=== PATIENT | female | born 2000 | race American Indian/Alaskan Native ===

== ENCOUNTER 2018-05-01 08:24 | Emergency (ER) | payer SELFPAY ==
[2018-05-01 08:29] VITALS: BP 112/74
[2018-05-01 09:04] LABS: Bilirubin,Urine NEG (Negative); Blood,Urine SM (Negative); Color,Urine Yellow (Yellow); HCG Qualitative,Urine Negative (Negative); Mucus,Urine 2+ /HPF; Protein,Urine <15 mg/dL mg/dL (Negative); Urobilinogen,Urine < 2.0 mg/dL (<2.0)
--- NOTE | 2018-05-01 09:27 | Emergency Department Report ---
ED Female HPI - General Chief complaint: Urogenital-Female Stated complaint: VAGINAL DISCOMFORT Time Seen by Provider: 05/01/18 09:00 Source: patient Mode of arrival: Ambulatory Limitations: No Limitations - History of Present Illness Initial comments: History of edema presents to ED with report of yellow and greenish vaginal discharge for 3 months. Reports dysuria, lower abdominal pain, vaginal itching. Denies fever MD Complaint: vaginal discharge -: month(s) (3) Location: suprapubic Radiation: non-radiating Severity: mild Quality: burning Consistency: intermittent Improves with: none Worsens with: none Are you Now?: No Associated Symptoms: vaginal discharge, abdominal pain, dysuria. denies: nausea /vomiting, fever/chills - Related Data Previous Rx's Medication Instructions Recorded Last Taken Type metroNIDAZOLE [Flagyl] 500 mg PO Q12HR 10 Days #20 tab 05/01/18 Unknown Rx Allergies Allergy/AdvReac Type Severity Reaction Status Date / Time No Known Allergies Allergy Unverified 05/01/18 08:26 ED Review of Systems ROS: Stated complaint: VAGINAL DISCOMFORT Other details as noted in HPI Comment: All other systems reviewed and negative Constitutional: denies: chills, fever Gastrointestinal: abdominal pain. denies: nausea, vomiting Genitourinary: dysuria, discharge ED Past Medical Hx - Past Medical History Previous Medical History?: No - Surgical History Past Surgical History?: No - Social History Smoking Status: Never Smoker Substance Use Type: None - Medications Home Medications: Home Medications Medication Instructions Recorded Confirmed Last Taken Type metroNIDAZOLE [Flagyl] 500 mg PO Q12HR 10 Days #20 tab 05/01/18 Unknown Rx ED Physical Exam - General Limitations: No Limitations General appearance: alert, in no apparent distress - Head Head exam: Present: atraumatic, normocephalic - Eye Eye exam: Present: normal appearance - ENT ENT exam: Present: mucous membranes moist - Neck Neck exam: Present: normal inspection - Respiratory Respiratory exam: Present: normal lung sounds bilaterally. Absent: respiratory distress - Cardiovascular Cardiovascular Exam: Present: regular rate, normal rhythm - GI/Abdominal GI/Abdominal exam: Present: soft. Absent: tenderness - External exam: Present: normal external exam Speculum exam: Present: vaginal discharge (greenish-yellow in color), cervical discharge Bi-manual exam: Present: normal bi-manual exam. Absent: cervical motion tendernes, adnexal tenderness, uterine tenderness - Extremities Exam Extremities exam: Present: normal inspection - Neurological Exam Neurological exam: Present: alert, oriented X3 - Psychiatric Psychiatric exam: Present: normal affect, normal mood - Skin Skin exam: Present: warm, dry, intact, normal color. Absent: rash ED Course Vital Signs 05/01/18 08:26 Temperature 98.4 F Pulse Rate 72 Respiratory 18 Rate Blood Pressure 112/74 O2 Sat by Pulse 99 Oximetry ED Medical Decision Making - Medical Decision Making 18-year-old female with vaginal discharge 3 months. Will give prophylactic treatment for gonorrhea and chlamydia. test negative. Wet prep shows clue cells. Will treat for bacterial vaginosis. - Differential Diagnosis gonorrhea, chlamydia, trichomonas, BV, yeast Critical care attestation.: If time is entered above; I have spent that time in minutes in the direct care of this critically ill patient, excluding procedure time. ED Disposition Clinical Impression: Cervicitis, Bacterial vaginosis Disposition: TO HOME OR SELFCARE Is pt being admited?: No Condition: Stable Instructions: Cervicitis (ED), Bacterial Vaginosis (ED) Prescriptions: metroNIDAZOLE [Flagyl] 500 mg PO Q12HR 10 Days #20 tab Referrals: PRIMARY CARE, [Primary Care Provider] - 3-5 Days Forms: STI Treatment and Prevention Time of Disposition: 10:38
[2018-05-01] MEDS ORDERED: XYLOCAINE 1% MPF 5 mL INFILTRATI ONE (10:36)
[2018-05-01] MEDS ORDERED: ROCEPHIN IM ONE (10:36)
[2018-05-01] MEDS ORDERED: ZITHROMAX PO ONE (10:37)
== END 2018-05-01 11:09 | disposition home or self-care (01) ==
LOC: ED 08:24
DX: N76.0 Acute vaginitis (principal); N72 Inflammatory disease of cervix uteri; B96.89 Other specified bacterial agents as the cause of diseases classified elsewhere
CPT/HCPCS: 81001; 81025; 87210; 87591; 96372; 99284; J0696

== ENCOUNTER 2018-12-13 17:47 | Emergency (ER) | payer SELFPAY ==
--- NOTE | 2018-12-13 18:51 | Emergency Department Report ---
Blank Doc - Documentation Documentation: This is a 18-year-old female that presents with pelvic pain and vaginal discha rge. This initial assessment/diagnostic orders/clinical plan/treatment(s) is/are subject to change based on patient's health status, clinical progression and re- assessment by fellow clinical providers in the ED. Further treatment and workup at subsequent clinical providers discretion. Patient/guardians urged not to elope from the ED as their condition may be serious if not clinically assessed a nd managed. Initial orders include: 1- Patient sent to [facility] for further evaluation and treatment 2- pelvic exam 3- UA 4- wet prep/GC
[2018-12-13 18:52] VITALS: BP 121/82
[2018-12-13 19:17] LABS: HCG Qualitative,Urine Negative (Negative)
[2018-12-13 19:19] LABS: Bilirubin,Urine NEG (Negative); Blood,Urine LG (Negative); Color,Urine Yellow (Yellow); Protein,Urine <15 mg/dL mg/dL (Negative); Urobilinogen,Urine < 2.0 mg/dL (<2.0)
[2018-12-13 19:20] LABS: WBC,Urine < 1.0 /HPF (0.0-6.0)
== END 2018-12-13 19:56 | disposition left against medical advice (07) ==
LOC: ED 17:47
DX: R10.2 Pelvic and perineal pain (principal); Z53.21 Procedure and treatment not carried out due to patient leaving prior to being seen by health care provider
CPT/HCPCS: 81001; 81025

== ENCOUNTER 2019-01-03 09:22 | Emergency (ER) | payer SELFPAY ==
[2019-01-03] MEDS ORDERED: ZOFRAN ODT PO ONE (09:53)
[2019-01-03] MEDS ORDERED: TYLENOL PO ONE (09:53)
--- NOTE | 2019-01-03 09:53 | Emergency Department Report ---
ED Abdominal Pain HPI - General Chief Complaint: Nausea/Vomiting/Diarrhea Stated Complaint: VOMIT/DISCOMFORT/PAIN Time Seen by Provider: 01/03/19 09:48 Source: patient Mode of arrival: Ambulatory Limitations: No Limitations - History of Present Illness Initial Comments: Gabriella is a pleasant healthy 18-year-old female without significant past medical history who presents with severe pelvic menstrual-like cramps this morning. She had 4 episodes of vomiting. Yesterday she was in her normal state of health. Last normal period October 13. No vaginal bleeding. No vaginal discharge. No fever. Moderately severe pain. No other symptoms. MD Complaint: abdominal pain -: Gradual, This morning Location: suprapubic Radiation: none Migration to: no migration Severity: moderate Quality: cramping Consistency: constant Improves With: nothing Worsens With: nothing Associated Symptoms: nausea, vomiting - Related Data Previous Rx's Medication Instructions Recorded Last Taken Type metroNIDAZOLE [Flagyl] 500 mg PO Q12HR 10 Days #20 tab 05/01/18 Unknown Rx Promethazine [Phenergan] 25 mg PO Q6HR PRN #10 tab 01/03/19 Unknown Rx Allergies Allergy/AdvReac Type Severity Reaction Status Date / Time No Known Allergies Allergy Verified 01/03/19 09:29 ED Review of Systems ROS: Stated complaint: VOMIT/DISCOMFORT/PAIN Other details as noted in HPI Comment: All other systems reviewed and negative Constitutional: denies: fever, malaise Respiratory: denies: shortness of breath Cardiovascular: denies: chest pain ED Past Medical Hx - Past Medical History Previous Medical History?: No - Surgical History Past Surgical History?: No - Social History Smoking Status: Never Smoker Substance Use Type: None - Medications Home Medications: Home Medications Medication Instructions Recorded Confirmed Last Taken Type metroNIDAZOLE [Flagyl] 500 mg PO Q12HR 10 Days #20 tab 05/01/18 Unknown Rx Promethazine [Phenergan] 25 mg PO Q6HR PRN #10 tab 01/03/19 Unknown Rx ED Physical Exam - General Limitations: No Limitations General appearance: alert, in no apparent distress, other (Bent over on all 4 extremities, curled up) - Head Head exam: Present: atraumatic, normocephalic - Eye Eye exam: Present: normal appearance - ENT ENT exam: Present: mucous membranes moist - Neck Neck exam: Present: normal inspection, full ROM - Respiratory Respiratory exam: Present: normal lung sounds bilaterally. Absent: respiratory distress, wheezes, rales, rhonchi - Cardiovascular Cardiovascular Exam: Present: regular rate, normal rhythm, normal heart sounds. Absent: systolic murmur, diastolic murmur, rubs, gallop - GI/Abdominal GI/Abdominal exam: Present: soft, normal bowel sounds. Absent: distended, tenderness, guarding, rebound - Extremities Exam Extremities exam: Present: normal inspection - Back Exam Back exam: Present: normal inspection - Neurological Exam Neurological exam: Present: alert, oriented X3 - Psychiatric Psychiatric exam: Present: normal affect, normal mood - Skin Skin exam: Present: warm, dry, intact, normal color. Absent: rash ED Course Vital Signs 01/03/19 01/03/19 01/03/19 09:29 10:50 11:20 Temperature 98.7 F Pulse Rate 66 Respiratory 16 16 17 Rate Blood Pressure 145/85 O2 Sat by Pulse 98 Oximetry 01/03/19 01/03/19 01/03/19 11:54 12:02 13:31 Temperature Pulse Rate 83 Respiratory 18 17 15 Rate Blood Pressure 109/70 O2 Sat by Pulse 100 Oximetry ED Medical Decision Making - Lab Data Result diagrams: 01/03/19 10:49 01/03/19 10:49 Laboratory Results - last 24 hr 01/03/19 01/03/19 01/03/19 09:42 10:49 10:49 WBC 8.2 RBC 4.49 Hgb 12.3 Hct 38.1 MCV 85 MCH 27 L MCHC 32 RDW 15.6 H Plt Count 222 Lymph % (Auto) 21.0 Wallace % (Auto) 5.2 Eos % (Auto) 0.1 Baso % (Auto) 0.3 Lymph # 1.7 Wallace # 0.4 Eos # 0.0 Baso # 0.0 Seg Neutrophils % 73.4 H Seg Neutrophils # 6.0 Sodium 141 Potassium 3.6 Chloride 103.9 Carbon Dioxide 21 L Anion Gap 20 BUN 9 Creatinine 0.7 Estimated GFR > 60 BUN/Creatinine Ratio 13 Glucose 119 H Calcium 9.2 Urine Color Yellow Urine Turbidity Slightly-cloudy Urine pH 8.0 H Ur Specific [place] 1.025 Urine Protein <15 mg/dl Urine Glucose (UA) Neg Urine Ketones Neg Urine Blood Neg Urine Nitrite Neg Ur Reducing Substances Not Reportable Urine Bilirubin Neg Urine Ictotest Not Reportable Urine Urobilinogen < 2.0 Ur Leukocyte Esterase Tr Urine WBC (Auto) 2.0 Urine RBC (Auto) < 1.0 U Epithel Cells (Auto) 13.0 Urine Bacteria (Auto) 1+ Urine Mucus 3+ Urine HCG, Qual Negative - Radiology Data Radiology results: report reviewed Unremarkable normal pelvic ultrasound - Medical Decision Making Ms. Rodriguez presents with severe nausea/vomiting. Normal CBC, BMP. UPT negative. UA contaminated without any remarkable findings. Suspect food poisoning versus dysmenorrhea. Given IVF IV analagesia IV antimemetics in the ED Prescribed promethazine no abdominal pain on serial abdominal exams pain-free upon discharge Critical care attestation.: If time is entered above; I have spent that time in minutes in the direct care of this critically ill patient, excluding procedure time. ED Disposition Clinical Impression: Abdominal pain, Pelvic pain, Vomiting Disposition: - TO HOME OR SELFCARE Is pt being admited?: No Does the pt Need Aspirin: No Condition: Stable Instructions: Chronic Pelvic Pain in Women (ED) Prescriptions: Promethazine [Phenergan] 25 mg PO Q6HR PRN #10 tab PRN Reason: Nausea Referrals: RICHARD GAO MD [Primary Care Provider] - 3-5 Days
[2019-01-03] MEDS ORDERED: NACL 0.9% 1000 ML 1,000 ML IV ONE (10:30)
[2019-01-03] MEDS ORDERED: ZOFRAN IV ONE ×2 (10:31→11:51)
[2019-01-03] MEDS ORDERED: ZOFRAN ONE (10:34)
[2019-01-03 10:36] LABS: HCG Qualitative,Urine Negative (Negative)
[2019-01-03 10:39] LABS: Bacteria,Urine 1+ /HPF (Negative); Bilirubin,Urine NEG (Negative); Blood,Urine NEG (Negative); Color,Urine Yellow (Yellow); Mucus,Urine 3+ /HPF; Protein,Urine <15 mg/dL mg/dL (Negative); RBC,Urine < 1.0 /HPF (0.0-6.0); Urobilinogen,Urine < 2.0 mg/dL (<2.0)
[2019-01-03] MEDS ORDERED: TORADOL IV ONE (10:43)
[2019-01-03 11:20] LABS: BUN/Creatinine Ratio 13; Blood Urea Nitrogen 9 mg/dL (7-17); Calcium 9.2 mg/dL (8.4-10.2); Hemolysis Index 10
[2019-01-03 11:27] LABS: Basophils % (Auto) 0.3 % (0.0-1.8); Eosinophils % (Auto) 0.1 % (0.0-4.3); Hematocrit 38.1 % (30.3-42.9); Hemoglobin 12.3 gm/dl (10.1-14.3); Lymphocytes # (Auto) 1.7 K/mm3 (1.2-5.4); Mean Corpuscular HGB Conc 32 % (30-34); Mean Corpuscular Volume 85 fl (79-97); Monocytes # (Auto) 0.4 K/mm3 (0.0-0.8); Monocytes % (Auto) 5.2 % (0.0-7.3); Platelet Count 222 K/mm3 (140-440); Red Blood Count 4.49 M/mm3 (3.65-5.03); Red Cell Distribution Width 15.6 % (13.2-15.2)
[2019-01-03] MEDS ORDERED: MORPHINE IV ONE (11:55)
[2019-01-03 13:34] VITALS: BP 109/70
--- NOTE | 2019-01-03 13:40 | Ultrasound Report ---
PROCEDURE: US PELVIC COMPLETE TECHNIQUE: Pelvic ultrasound. Transabdominal and transvaginal pelvic imaging HISTORY: pelvic pain COMPARISON: None FINDINGS: The uterus measures7.9 x 4.2 x 4.4 cm. There is no focal uterine mass seen. Endometrial thickness is 11 mm. The right ovary measures 3.4 x 1.9 x 3.4 cm. The left ovary measures 3.4 x 1.9 x 2.5 cm. There is blood flow seen within both ovaries . There is no abnormal adnexal mass seen. There is minimal pelvic free fluid in the cul-de-sac. IMPRESSION: Unremarkable pelvic ultrasound. This document is electronically signed by Rosalba Johnson MD., January 03 2019 02:38:45 PM ET
--- NOTE | 2019-01-03 13:40 | Ultrasound Report ---
PROCEDURE: US TRANSVAGINAL TECHNIQUE: Pelvic ultrasound. Transabdominal and transvaginal pelvic imaging HISTORY: pelvic pain COMPARISON: None FINDINGS: The uterus measures7.9 x 4.2 x 4.4 cm. There is no focal uterine mass seen. Endometrial thickness is 11 mm. The right ovary measures 3.4 x 1.9 x 3.4 cm. The left ovary measures 3.4 x 1.9 x 2.5 cm. There is blood flow seen within both ovaries . There is no abnormal adnexal mass seen. There is minimal pelvic free fluid in the cul-de-sac. IMPRESSION: Unremarkable pelvic ultrasound. This document is electronically signed by Rosalba Johnson MD., January 03 2019 02:38:18 PM ET
== END 2019-01-03 14:01 | disposition home or self-care (01) ==
LOC: ED 09:22
DX: R10.30 Lower abdominal pain, unspecified (principal); R10.2 Pelvic and perineal pain; R11.2 Nausea with vomiting, unspecified
CPT/HCPCS: 36415; 76830; 76856; 80048; 81001; 81025; 85025; 96361; 96374; 96375; 96376; 99284; J1885; J2270; J2405; J7030; Q0162